=== PATIENT | female | born 1970 | race Caucasian/White ===

== ENCOUNTER 2022-08-27 08:45 | Outpatient (CLI) | payer BC | END 2022-08-27 08:46 | disposition home or self-care (01) | LOC: CSHLAB 08:45 | PROVIDERS: ATTEND Obstetrics & Gynecology | DX: Z01.818 Encounter for other preprocedural examination (principal) | CPT/HCPCS: 84703; 85027; 86850; 86900; 86901; 93005; 93010 ==

== ENCOUNTER 2022-08-28 11:27 | Day surgery (SDC) | payer BC ==
[2022-08-27 11:07] LABS: Mean Corpuscular HGB CONC 33.4 g/dL (32.0-36.0); Mean Corpuscular Hemoglobin 29.3 pg (27.0-33.0); Mean Corpuscular Volume 87.7 fl (81.6-98.3); Mean Platelet Volume 9.8 fl (7.4-10.4); Platelet Count 408 10x3/uL (150-450); RBC Distribution Width 12.5 % (11.5-14.5); Red Blood Cell (RBC) Count 5.12 10x6/uL (3.90-5.03); White Blood Cell (WBC) Count 10.2 10x3/uL (3.5-10.5)
[2022-08-27 11:28] LABS: BHCG - Serum Negative (NEGATIVE); Pregs Control Background? CLEAR/WHITE (CLR/WHITE); Pregs Control Bar Appear? YES (CONTROL BAR)
[2022-08-27 14:39] VITALS: BMI 34.8
[~2022-08-28 11:27] MED LIST: Bupivacaine PF 0.5% 30 ML VIAL ONE; EPINEPHrine 1 MG/ML AMP ONE
[2022-08-28] MEDS ORDERED: CeleCOXIB 100 MG CAP ONE (11:35)
[2022-08-28] MEDS ORDERED: Gabapentin 300 MG CAP ONE (11:36)
[2022-08-28] MEDS ORDERED: Famotidine/PF 20 mg/2ml Vial ONE ×2 (11:36→11:59)
[2022-08-28] MEDS ORDERED: Lidocaine 2% PF 5 ML VIAL ONE (11:57)
[2022-08-28] MEDS ORDERED: Fentanyl 100 MCG/2 ML VIAL ONE ×2 (11:57→14:12)
[2022-08-28] MEDS ORDERED: PROPOFOL 20 ML ONE (11:57)
[2022-08-28] MEDS ORDERED: Rocuronium Bromide 10 MG/ML (10ML VIAL) ONE (11:58)
[2022-08-28] MEDS ORDERED: CEFAZOLIN 2 GM VIAL ONE (11:58)
[2022-08-28] MEDS ORDERED: SUGAMMADEX SODIUM 200 MG/2 ML VIAL ONE (11:59)
[2022-08-28] MEDS ORDERED: Midazolam HCl 2 mg/2 ml Vial ONE (12:33)
[2022-08-28] MEDS ORDERED: Esmolol 100 MG/10 ML VIAL ONE (12:33)
[2022-08-28] MEDS ORDERED: Albuterol HFA (OR) 200 PUFF INH ONE (13:21)
[2022-08-28] MEDS ORDERED: HYDROmorphone 0.5 MG/0.5 ML SYRINGE ONE (13:27)
== END 2022-08-28 15:25 | disposition home or self-care (01) ==
LOC: CSHSDC 11:27
PROVIDERS: ATTEND Obstetrics & Gynecology
PROC: 0UT6FZZ Resection of Left Fallopian Tube, Via Natural or Artificial Opening With Percutaneous Endoscopic Assistance (ICD-10-PCS; principal; 2022-08-28)
PROC: 0UT1FZZ Resection of Left Ovary, Via Natural or Artificial Opening With Percutaneous Endoscopic Assistance (ICD-10-PCS; principal; 2022-08-28)
PROC: 0UPD4HZ Removal of Contraceptive Device from Uterus and Cervix, Percutaneous Endoscopic Approach (ICD-10-PCS; 2022-08-28)
DX: N83.12 Corpus luteum cyst of left ovary (principal); N83.512 Torsion of left ovary and ovarian pedicle; N83.8 Other noninflammatory disorders of ovary, fallopian tube and broad ligament; Z30.432 Encounter for removal of intrauterine contraceptive device; I10 Essential (primary) hypertension; F90.9 Attention-deficit hyperactivity disorder, unspecified type; E66.9 Obesity, unspecified; Z68.35 Body mass index [BMI] 35.0-35.9, adult; Z79.899 Other long term (current) drug therapy; Z88.2 Allergy status to sulfonamides; Z90.49 Acquired absence of other specified parts of digestive tract; Z98.890 Other specified postprocedural states
CPT/HCPCS: 84703; 85027; 86850; 86900; 86901; 88305; J0171; J1170; J2001; J2250; J2704; J3010; S0020; S0028